=== PATIENT | male | born 1985 | race Caucasian/White ===

== ENCOUNTER 2016-04-18 09:34 | Emergency (ER) | payer MEDICARE, MEDICAID ==
[~2016-04-18] VITALS: Ht 180.3 cm; Wt 139.6 kg
[~2016-04-18 09:34] MED LIST: CYCL10TA9 PO; HYDR-4003 PO; PENI500T PO
[2016-04-18 09:40] VITALS: BP 125/73; PULSE 92; RESP 18; O2SAT 98
[2016-04-18 11:25] VITALS: BP 121/79; PULSE 94; RESP 20; O2SAT 100
--- NOTE | 2016-04-18 12:52 | ED.REPORT ---
HPI-Back Pain Under 40 Date of Service Apr 18, 2016 ED Provider: Vance Watt PA-C Schuyler is an otherwise healthy 30-year-old male who presents with chief complaint of low back pain. Patient states that he heard a pop when trying to lift several basket of laundry at the same time last night, the pain has been persistent. He localizes pain to the right SI region. Admits a history of back pain and degenerative disc disease. Denies history of back surgery. Denies numbness, tingling, weakness, pain in lower extremity. Denies fever, chills, DM , HIV, organ transplant, immunosuppression, recent surgery, recent infection, IV drug use. Denies bowel/bladder dysfunction, saddle anesthesia. Nursing Notes Stated Complaint: BACK PAIN Chief Complaint: Back Pain or Injury Nursing Notes Reviewed: Yes Allergies: Coded Allergies: codeine (Verified Allergy, Severe, rash, 05/31/15) Scheduled Penicillin V Potassium (Penicillin V Potassium) 500 Mg Tablet 500 MG PO TID Prednisone (PredniSONE) 20 Mg Tablet 40 MG PO DAILY Scheduled PRN Cyclobenzaprine (Cyclobenzaprine) 10 Mg Tablet 10 MG PO TID PRN PRN Spasm Cyclobenzaprine (Cyclobenzaprine) 5 Mg Tablet 5-10 MG PO HS PRN PRN Spasm Hydrocodone-Acetaminophen 5-325 mg (Hydrocodone-Acetaminophen 5-325 mg) 1 Each Tablet 1-2 TABLET PO Q4H PRN PRN For Pain General Time Seen by MD: 12:25 Chief Complaint Lumbar pain Sudden in Onset?: Yes Past Medical History Past Medical History Chronic back pain Reports: Asthma Past Surgical History None reported Smoking History Never Smoker, Unknown if Ever Smoker Review of Systems Negative unless stated otherwise in history of present illness Physical Exam General: Well developed, obese, no acute distress. Back: No redness, swelling, ecchymosis, no tenderness Head: Atraumatic, normocephalic. Eyes: No scleral icterus or injection. No discharge. Vision grossly intact. ENT: Voice clear, hearing grossly intact. Respiratory: Regular rate and rhythm. . Skin: Warm and dry. Neurological: Normal gait. Hip flexion, knee extension, ankle dorsiflexion and plantarflexion strength 5/5 B/L. Patellar and Achilles reflexes 2+ B/L. Sensation to light touch intact at medial leg, dorsal foot and lateral foot B/ L. negative seated straight leg raise, negative seated cross straight leg raise. Psychological: alert and oriented. Speech appropriate, linear and logical. Behavior appropriate. Initial Vital Signs Vital Signs (First) Date Time Temp Pulse Resp B/P Pulse Ox O2 Delivery O2 Flow Rate FiO2 04/18/16 09:40 36.0 92 18 125/73 98 04/18/16 11:25 Room Air Initial VS: Reviewed, Vital signs normal Re-Eval/Medical Decision Med Decision/Clinical Course In brief this is an otherwise healthy 30-year-old male with a history of lower back pain and degenerative disc disease. Presents the ED with chief complaint low back pain started when he lifted several basket of laundry at the same time last night. Patient reports that he heard a pop and fell to the ground. Pain is persistent at this time without radiation. Denies neurological symptoms, red flag symptoms for cauda equina or epidural abscess. Encouraged patience, rest, ibuprofen, acetaminophen, and prescribed 5 day course of prednisone and a small amount of cyclobenzaprine. Advise primary care follow-up in one week if not resolving and gave return precautions. Discharge & Departure Impression: Primary Impression: Low back pain Chronicity: acute Back pain laterality: right Sciatica presence: without sciatica Qualified Code: M54.5 - Low back pain Disposition: Home All VS Reviewed: Yes Condition: Stable Patient Instructions: Acute Low Back Pain (ED) Additional Instructions: Evaluation in the emergency department for lower back pain. History and physical are reassuring for emergent neurological condition such as epidural abscess or cauda equina syndrome. There is no indication for an MRI or CT scan in the emergency department tonight. Rest and ice will speed your recovery, but avoid total bed rest. Reasonable activity as tolerated is the best. The pain is best treated with 800 mg of ibuprofen (Advil, Motrin) every 6 hours, or 1000 mg of acetaminophen (Tylenol) every 6 hours. These drugs can be taken at the same time for more severe pain. Additionally you will be sent with a prescription for a 6 day course of prednisone, which will reduce the swelling around your spine and should improve your symptoms. I will also give you a prescription for a small amount of cyclobenzaprine (Flexeril), which is a muscle relaxant. Do not take this while operating a vehicle or drinking alcohol. Most of all be patient: 70-90% of people with injuries presenting like yours will improve significantly within 7 weeks, even without treatment. Follow up with your primary care provider in about one week if your pain is not improving as expected. Return the emergency department for new or worsening symptoms such as loss of bowel/bladder control, numbness between your legs, new weakness/ numbness or high fever. Referrals: Shashi Maza MD (PCP) EDSupervising Provider for APC: Goran Bain MD, Seth PA-C Apr 18, 2016 12:52
[2016-04-18] MEDS ORDERED: CYCL5TAB PO (12:54)
[2016-04-18] MEDS ORDERED: PRE20 PO (12:54)
[2016-04-18 13:12] VITALS: BP 130/80; PULSE 84; RESP 20; O2SAT 99
== END 2016-04-18 13:13 | disposition home or self-care (01) ==
LOC: SED 09:34
DX: M54.5 Low back pain (principal); X50.0XXA Overexertion from strenuous movement or load, initial encounter; Y93.89 Activity, other specified; Y92.89 Other specified places as the place of occurrence of the external cause; Y99.8 Other external cause status; J45.909 Unspecified asthma, uncomplicated; Z88.5 Allergy status to narcotic agent